=== PATIENT | female | born 1990 | race Two or more races ===

== ENCOUNTER 2023-09-05 07:20 | Day surgery (SDC) | payer OTHER ==
[~2023-09-05] VITALS: Ht 165.1 cm; Wt 57.2 kg
[~2023-09-05 07:20] MED LIST: CLONAZEPAM0.5 MG PO
[2023-09-05] MEDS ORDERED: CEFTRIAXONE SODIUM 2,000 MG VIAL ONE (13:08)
[2023-09-05] MEDS ORDERED: METRONIDAZOLE/SODIUM CHLORIDE 500 MG/100 ML PIGGYBACK IV ONE (13:08)
[2023-09-05] MEDS ORDERED: BUPIVACAINE HCL/PF 0.5% 30ML ML ONE (13:11)
[2023-09-05] MEDS ORDERED: HEMOSTATIC MATRIX 1 KIT KIT TOP ONE ×2 (13:11→14:00)
[2023-09-05] MEDS ORDERED: DIBUCAINE 15 GM OINT..GM. TUBE ONE (13:11)
[2023-09-05] MEDS ORDERED: POVIDONE-IODINE 118 ML BOTT TOP ONE (13:11)
[2023-09-05] MEDS ORDERED: LIDOCAINE HCL 1%/Epi 20ML VIAL IJ ONE (13:11)
[2023-09-05] MEDS ORDERED: TAMSULOSIN HCL 0.4 MG CAP PO ONE (13:30)
[2023-09-05] MEDS ORDERED: DIBUCAINE 30 GM TUBE ONE (13:42)
[2023-09-05] MEDS ORDERED: DIBUCAINE 30 GM TUBE RECTAL ONE (14:00)
[2023-09-05] MEDS ORDERED: METRONIDAZOLE/SODIUM CHLORIDE 500 MG/100 ML PIGGYBACK IV SCH (14:00)
[2023-09-05] MEDS ORDERED: BUPIVACAINE HCL 30 ML VIAL IJ ONE (14:00)
[2023-09-05] MEDS ORDERED: LIDOCAINE HCL/EPINE 1%-Epi 30ML VIAL IJ ONE (14:00)
[2023-09-05] MEDS ORDERED: CEFTRIAXONE SODIUM 2,000 MG VIAL IV SCH (14:00)
[2023-09-05] MEDS ORDERED: OXYC1TAB9 PO (14:11)
[2023-09-05] MEDS ORDERED: ONDANSETRON HCL 2 MG/ML VIAL ONE (21:12)
[2023-09-06] MEDS ORDERED: POVIDONE-IODINE 118 ML BOTT TOP ONE (15:15)
== END 2023-09-05 21:40 | disposition home or self-care (01) ==
LOC: CIR.AMB 07:20
PROVIDERS: ATTEND Surgery
DX: D12.9 Benign neoplasm of anus and anal canal (principal); K62.89 Other specified diseases of anus and rectum; Z20.822 Contact with and (suspected) exposure to COVID-19

== ENCOUNTER 2024-01-24 06:54 | Day surgery (SDC) | payer OTHER ==
[~2024-01-24 06:54] MED LIST changes: +OXYC1TAB9 PO
[2024-01-24] MEDS ORDERED: MIDAZOLAM HCL 2 MG/2 ML VIAL IV ONE (12:00)
[2024-01-24] MEDS ORDERED: fentaNYL CITRATE 50 MCG/ML AMPUL IV ONE (12:00)
[2024-01-24] MEDS ORDERED: DIPHENHYDRAMINE HCL 50 MG/ML VIAL 1ML IV ONE (12:00)
== END 2024-01-24 12:10 | disposition home or self-care (01) ==
LOC: AMB-ENDOS 06:54
PROVIDERS: ATTEND Surgery
DX: K62.5 Hemorrhage of anus and rectum (principal); D37.5 Neoplasm of uncertain behavior of rectum